=== PATIENT | female | born 1985 | race Caucasian/White ===

== ENCOUNTER 2016-12-15 21:19 | Emergency (ER) | payer MEDICAID ==
[~2016-12-15] VITALS: Ht 165.1 cm; Wt 91.2 kg
[~2016-12-15 21:19] MED LIST: ALPR1TAB2 PO; CEFD300C37 PO; ESTR0.6246 PO; FEXO180T5 PO; LEUP3.75 INJ; ONDA4TAB7 PO; OXYC-302 PO; RAME8TAB8 PO; TRAM50TA2 PO
[2016-12-15 23:31] VITALS: BP 133/80
== END 2016-12-15 23:33 | disposition home or self-care (01) ==
LOC: ED 23:27
DX: M72.2 Plantar fascial fibromatosis (principal); F41.9 Anxiety disorder, unspecified; Z88.5 Allergy status to narcotic agent; Z91.041 Radiographic dye allergy status; Z88.8 Allergy status to other drugs, medicaments and biological substances
CPT/HCPCS: 99284

== ENCOUNTER 2018-02-16 14:33 | Emergency (ER) | payer MEDICAID ==
[~2018-02-16] VITALS: Ht 165.1 cm; Wt 86.0 kg
[~2018-02-16 14:33] MED LIST changes: +FEXO180T15 PO; -FEXO180T5 PO; +RAME8TAB19 PO; -RAME8TAB8 PO
[2018-02-16 15:08] LABS: CULTURE INDICATED? YES; MICROSCOPIC INDICATED
[2018-02-16 16:07] VITALS: BP 128/70
== END 2018-02-16 16:09 | disposition home or self-care (01) ==
LOC: ED 15:07
DX: J02.8 Acute pharyngitis due to other specified organisms (principal); N30.01 Acute cystitis with hematuria; F41.9 Anxiety disorder, unspecified; F17.200 Nicotine dependence, unspecified, uncomplicated
CPT/HCPCS: 81001; 87081; 87086; 87880; 99284